=== PATIENT | female | born 1990 | race Two or more races ===

== ENCOUNTER 2017-10-26 10:29 | Emergency (ER) | payer OTHER ==
[~2017-10-26] VITALS: Ht 167.6 cm; Wt 59.0 kg
[~2017-10-26 10:29] MED LIST: TUSSI PRES-B L120 M1 PO
== END 2017-10-26 14:40 | disposition home or self-care (01) ==
LOC: ER 10:29
DX: K52.9 Noninfective gastroenteritis and colitis, unspecified (principal)

== ENCOUNTER 2017-11-08 15:47 | Emergency (ER) | payer OTHER ==
[~2017-11-08] VITALS: Ht 167.6 cm; Wt 61.7 kg
== END 2017-11-08 17:11 | disposition home or self-care (01) ==
LOC: ER 15:47
DX: R22.9 Localized swelling, mass and lump, unspecified (principal)

== ENCOUNTER 2017-11-29 08:38 | Outpatient (CLI) | payer OTHER | END 2017-11-29 08:40 | disposition home or self-care (01) | LOC: SONOGRAMA 08:38 | DX: N64.89 Other specified disorders of breast (principal) ==

== ENCOUNTER 2021-12-06 21:24 | Emergency (ER) | payer OTHER ==
[~2021-12-06] VITALS: Ht 167.6 cm; Wt 56.7 kg
[2021-12-07] MEDS ORDERED: CEPHALEXIN500 MG PO (01:57)
[2021-12-07] MEDS ORDERED: KETO10TA2 PO (01:57)
== END 2021-12-07 02:02 ==
LOC: ER 21:24
DX: R10.9 Unspecified abdominal pain (principal)

== ENCOUNTER 2022-03-31 18:52 | Emergency (ER) | payer OTHER ==
[~2022-03-31] VITALS: Ht 162.6 cm; Wt 71.2 kg
[~2022-03-31 18:52] MED LIST changes: +CEPHALEXIN500 MG PO; +KETO10TA2 PO
[2022-03-31] MEDS ORDERED: KETO10TA2 PO (23:27)
== END 2022-04-01 00:09 | disposition home or self-care (01) ==
LOC: ER 18:52
DX: R51.9 Headache, unspecified (principal)